=== PATIENT | female | born 2000 | race Caucasian/White ===

== ENCOUNTER 2021-02-15 22:07 | Emergency (ER) | payer BC, SELFPAY ==
--- NOTE | 2021-02-15 22:20 | DI.US.S_ITS ---
PROCEDURE: US PELVIC COMPLETE INDICATIONS: LEFT LOWER QUADRANT PAIN TECHNIQUE: Real-time scanning was performed of the pelvic organs, with image documentation. Additional endovaginal scanning was necessary due to incomplete visualization of the adnexal and endometrial structures by transabdominal scanning. COMPARISON: None. FINDINGS: Uterus: Uterus is normal in size at 8.2 x 5.0 x 3.3 cm. The endometrium measures 4.6 mm in combined thickness. The cervix demonstrates nabothian cyst, otherwise unremarkable. Ovaries: The right ovary measures 4.1 x 1.6 x 2.5 centimeters. The left ovary measures 3.9 x 3.4 x 1.8 centimeters. Normal physiologic follicles without suspicious cystic or solid mass. Color Doppler flow is normal in both ovaries. Other: No pathologic free abdominal or pelvic fluid. IMPRESSION: Unremarkable pelvic ultrasound. Agree with preliminary report. Dictated by: Rodolfo Santos D.O. on 02/16/2021 at 5:40 Approved by: Rodolfo Santos D.O. on 02/16/2021 at 5:44
[2021-02-15 22:21] VITALS: BP 136/72; PULSE 87; RESP 16; TEMP 36.7; O2SAT 95; BMI 26.6
--- NOTE | 2021-02-15 22:29 | ED.GENADULT ---
HPI - General Adult General Chief complaint: Abdominal Pain Stated complaint: sharp pain, left side hip Time Seen by Provider: 02/15/21 22:16 Source: patient Mode of arrival: Ambulatory Limitations: no limitations History of Present Illness HPI narrative: Patient is a 20-year-old female who is here for evaluation of left lower quadrant/left flank abdominal discomfort. She states that the symptoms that brought her in today have occurred in the past. States that it is been off and on for the past year. He has not been evaluated for the symptoms prior to today. The symptoms that she was brought in for today did start earlier in the day. She is on her menstrual cycle however she does not think that the discomfort is been associated with this in the past. She denies any urinary symptoms. No change in bowel habit. No nausea or vomiting. Pain seems to be localized in the same spot on her left lower quadrant/left flank. It is worse with movement and palpation. Related Data Allergies Allergy/AdvReac Type Severity Reaction Status Date / Time amoxicillin Allergy Severe Rash Verified 02/15/21 22:34 Penicillins Allergy Severe Rash Verified 02/15/21 22:34 Review of Systems Constitutional Constitutional: Denies fever(s) Cardiovascular Cardiovascular: Reports system reviewed and no additional complaints, except as documented Respiratory Respiratory: Reports system reviewed and no additional complaints, except as documented Gastrointestinal Gastrointestinal: Reports abdominal pain, Denies change in bowel habits, Denies constipation, Denies diarrhea, Denies nausea and Denies vomiting Genitourinary Genitourinary: Denies dysuria Genitourinary: Denies abnormal vaginal bleeding and Denies dysuria Musculoskeletal Musculoskeletal: Denies back pain Integumentary/Breasts Skin/Breast: Denies rash Neurologic Neurologic: Reports system reviewed and no additional complaints, except as documented Psychiatric Psychiatric: Reports system reviewed and no additional complaints, except as documented Endocrine Endocrine: Reports system reviewed and no additional complaints, except as documented Hematologic/Lymphatic On Anticoagulants: No Allergic/Immunologic Allergic/Immunologic: Reports system reviewed and no additional complaints, except as documented Patient History Medical History Healthy adult Social History Smoking Status: Current some day smoker Smoking Status: Current some day smoker tobacco type: vaping Substance Use Type: does not use Exam Initial Vital Signs Initial Vital Signs: Vital Signs Temperature 98.1 F 02/15/21 22:21 Pulse Rate 87 02/15/21 22:21 Respiratory Rate 16 02/15/21 22:21 Blood Pressure 136/72 02/15/21 22:21 Pulse Oximetry 95 02/15/21 22:21 Const General: cooperative and comfortable Limitations: mental status not altered HENMT Head: normal to inspection and normocephalic Resp Effort & Inspection: normal respiratory effort Cardio Rate: regular rate GI Inspection: non-distended Palpation: soft and tender (Left mid abdomen without rebound or guarding) Back/Spine/Pelvis Back: No CVA tenderness Skin Lesions: no lesions Rashes: no rashes Neuro General: patient alert, patient awake and patient oriented x3 Cognition: normal cognition Speech: speech normal Extrem General: capillary refill normal Psych Appearance: grossly normal and well kempt Course Orders Ordered: ED Orders 02/15/21 22:20 US pelvic complete Stat Vital Signs Vital signs: Vital Signs - 8 hr 02/15/21 22:21 02/16/21 00:37 Temperature 98.1 F Pulse Rate 87 67 Respiratory Rate 16 16 Blood Pressure 136/72 112/73 Pulse Oximetry 95 99 Medical Decision Making Lab Data Lab results reviewed: Yes I reviewed the patient's lab results. Labs: Point of Care Testing Test Results Negative Urine Dip Bedside Urine Glucose Negative Bedside Urine Bilirubin - Negative Bedside Urine Ketone - Negative Urine Specific [place] 1.030 Bedside Urine Occult Blood ++ Bedside Urine pH 6 Bedside Urine Protein - Negative Bedside Urine Urobilinogen - Negative Bedside Urine Nitrite - Negative Bedside Urine Leukocytes - Negative Esterase Point of care testing: Point of Care Testing Test Results Negative Urine Dip Bedside Urine Glucose Negative Bedside Urine Bilirubin - Negative Bedside Urine Ketone - Negative Urine Specific [place] 1.030 Bedside Urine Occult Blood ++ Bedside Urine pH 6 Bedside Urine Protein - Negative Bedside Urine Urobilinogen - Negative Bedside Urine Nitrite - Negative Bedside Urine Leukocytes - Negative Esterase Imaging Data 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 The symptoms that she arrived with the day have been going on for the past 24 hours. Her urine does have blood however she is on her menstrual cycle. There is no other signs of urinary tract infection. Low suspicion for pyelonephritis and her symptoms are not consistent with renal colic. She has no skin changes over the area. Her symptoms are also not consistent with pancreatitis/bowel obstruction/appendicitis or other intra-abdominal surgical issues. Pelvic ultrasound was obtained and shows normal ovaries without signs of torsion or ovarian cyst. test is negative. Unsure the exact etiology of the patient's symptoms but it does not appear to be a surgical nor infectious etiology. Will hold on further workup for now. Patient was given return precautions and follow-up instructions. She expressed understanding and agreement Discharge Plan Departure Patient Disposition: Home Clinical Impression: Flank pain Instructions: DI for Flank Pain Activity Restrictions/Additional Instructions: Your workup today in the emergency department is very reassuring. Of low suspicion for any sort of abdominal organ issue that would require antibiotics or surgery. Recommend you contact your primary provider for follow-up. Return to the emergency department for any new or worsening symptoms.
[2021-02-16 00:37] VITALS: BP 112/73; PULSE 67; RESP 16; O2SAT 99
== END 2021-02-16 00:37 | disposition home or self-care (01) ==
PROVIDERS: Emergency Provider Emergency Medicine
DX: R10.32 Left lower quadrant pain (principal)
CPT/HCPCS: 76830; 76856; 81003; 81025; 99283